=== PATIENT | male | born 1980 | race Caucasian/White ===

== ENCOUNTER 2019-02-28 16:47 | Emergency (ER) | payer OTHER ==
[2019-02-28 16:55] VITALS: BMI 27.3
[2019-02-28 16:57] VITALS: O2SAT 97
--- NOTE | 2019-02-28 17:08 | C.PDOC ---
Time Seen by Provider: 02/28/19 17:08 Chief Complaint (Nursing): Chest Pain Past Medical History Vital Signs: Last Vital Signs Temp 98.4 F 02/28/19 16:55 Pulse 64 02/28/19 16:55 Resp 18 02/28/19 16:55 BP 108/67 02/28/19 16:55 Pulse Ox 97 02/28/19 16:55 Primary Care Provider: FAMILY PROVIDER,NO - Social History Hx Alcohol Use: No Hx Substance Use: No - Immunization History Hx Tetanus Toxoid Vaccination: No Hx Influenza Vaccination: No Hx Pneumococcal Vaccination: No ED Course And Treatment O2 Sat by Pulse Oximetry: 97 Disposition - Disposition
[2019-02-28] MEDS ORDERED: Sodium Chloride 0.9% 1,000 ML IV ONE (17:44)
--- NOTE | 2019-02-28 17:57 | C.PDOC ---
History Of Present Illness PGY-[address] Bryant Dasilva [employer]: [facility] #[id number] Patient is 38 year old male with pmhx of Gastritis, H.pylori infection, presents to ED for epigastric pain and 3/4 episodes of non bloody vomiting since yesterday. Patient states pain is described as burning, associated with eating heavy meal. vomiting is associated with eating as well. admits to chest discomfort on left side and back pain. admits to diarrhea, denies fevers, chills, shortness of breath, constipation, blood in the stools, urinary symptoms. Pt sees Dr Trejo for GI issues, takes zantac for gastritis. <Bubba Gutierrez - Last Filed: 02/28/19 19:56> History Per: Patient History/Exam Limitations: language barrier Onset/Duration Of Symptoms: Days Current Symptoms Are (Timing): Still Present Context: Food Radiation Of Pain To:: Back, Chest Quality Of Discomfort: Burning Associated Symptoms: Nausea, Vomiting, Diarrhea, Loss Of Appetite, Back Pain, Chest Pain. denies: Fever, Chills, Constipation, Urinary Symptoms Exacerbating Factors: Food <Bubba Gutierrez - Last Filed: 02/28/19 19:56> <Bryant Dasilva - Last Filed: 03/01/19 21:42> Time Seen by Provider: 02/28/19 17:08 Chief Complaint (Nursing): Chest Pain Past Medical History Vital Signs: Last Vital Signs Temp 98.4 F 02/28/19 16:55 Pulse 64 02/28/19 16:55 Resp 18 02/28/19 16:55 BP 108/67 02/28/19 16:55 Pulse Ox 97 02/28/19 16:55 Primary Care Provider: FAMILY PROVIDER,NO - Medical History PMH: Gastritis Surgical History: No Surg Hx Family History: States: No Known Family Hx - Social History Hx Tobacco Use: Yes (7-9 cigarettes/day) Hx Alcohol Use: No Hx Substance Use: No - Immunization History Hx Tetanus Toxoid Vaccination: No Hx Influenza Vaccination: No Hx Pneumococcal Vaccination: No <Bubba Gutierrez - Last Filed: 02/28/19 19:56> Vital Signs: Last Vital Signs Temp 98.4 F 02/28/19 16:55 Pulse 60 02/28/19 17:31 Resp 16 02/28/19 17:31 BP 109/69 02/28/19 17:31 Pulse Ox 97 02/28/19 18:15 <Bryant Dasilva - Last Filed: 03/01/19 21:42> Review Of Systems Constitutional: Negative for: Fever, Chills, Weakness Cardiovascular: Positive for: Chest Pain. Negative for: Palpitations Respiratory: Negative for: Shortness of Breath Gastrointestinal: Positive for: Nausea, Vomiting, Abdominal Pain, Diarrhea. Negative for: Constipation, Melena, Hematochezia, Hematemesis Genitourinary: Negative for: Dysuria, Frequency Musculoskeletal: Positive for: Back Pain Neurological: Negative for: Weakness Psych: Negative for: Anxiety, Depression <Bubba Gutierrez - Last Filed: 02/28/19 19:56> Physical Exam - Physical Exam Appears: Non-toxic, No Acute Distress Skin: Normal Color Head: Atraumatic, Normacephalic Eye(s): bilateral: Normal Inspection, EOMI Neck: Normal ROM Chest: Tenderness (left chest area mild tenderness to palpation ) Cardiovascular: Rhythm Regular Respiratory: Normal Breath Sounds Gastrointestinal/Abdominal: Normal Exam, Bowel Sounds, Soft, Tenderness (epigastric and left upper quadrant tenderness, mild diffuse tenderness ), No Distention Back: No CVA Tenderness, No Vertebral Tenderness Extremity: Normal ROM, No Tenderness, No Swelling Neurological/Psych: Oriented x3, Normal Speech, Normal Cognition, Normal Motor, Normal Sensation <Bubba Gutierrez - Last Filed: 02/28/19 19:56> - Physical Exam Eye(s): bilateral: PERRL Ear(s): Bilateral: Normal Nose: Normal, No Flaring, No Discharge Oral Mucosa: Moist Throat: Normal, No Erythema, No Exudate, No Drooling Neck: Normal, Supple, Other (no meningeal signs) Chest: Tenderness Cardiovascular: No Friction Rub, No Murmur, No JVD Respiratory: No Stridor, No Wheezing Back: Normal Inspection, No Muscle Spasm, No Paraspinal Tenderness Extremity: Bilateral: Atraumatic Gait: Steady <Bryant Dasilva - Last Filed: 03/01/19 21:42> ED Course And Treatment - Laboratory Results Result Diagrams: 02/28/19 18:24 02/28/19 18:24 ECG: Viewed By Me Interpretation Of EC, normal sinus, no STEMI Rate From EC O2 Sat by Pulse Oximetry: 97 <Bubba Gutierrez - Last Filed: 02/28/19 19:56> - Laboratory Results Result Diagrams: 02/28/19 18:24 02/28/19 18:24 Lab Results: Troponin I < 0.0120 ng/mL (0.00-0.120) 02/28/19 18:24 Total Bilirubin 0.5 mg/dL (0.2-1.3) 02/28/19 18:24 AST 17 U/L (17-59) 02/28/19 18:24 ALT 16 U/L (21-72) L 02/28/19 18:24 Alkaline Phosphatase 66 U/L (38-126) 02/28/19 18:24 Total Protein 7.5 g/dL (6.3-8.3) 02/28/19 18:24 Albumin 4.3 g/dL (3.5-5.0) 02/28/19 18:24 Globulin 3.1 gm/dL (2.2-3.9) 02/28/19 18:24 Albumin/Globulin Ratio 1.4 (1.0-2.1) 02/28/19 18:24 Lipase 96 U/L (23-300) 02/28/19 18:24 <Bryant Dasilva - Last Filed: 03/01/19 21:42> Medical Decision Making Medical Decision Makin38 year old male with pmhx of gastritis, H.pylori infection, presenting with epigastric pain and 3-4 episodes of vomiting, non bloody and chest tenderness, most likely associated with gastritis, rule out cardiac etiology - EKG - Basic labs - CMP, CBC - trops - lipase - Chest Xray - Bentyl 10mg PO x 1 - Pepcid IVP x 1 - reglan IVP x1 - NS 1L <Bubba Gutierrez - Last Filed: 02/28/19 19:56> Medical Decision Makin No tearing back pain. No cauda equina signs. No midline back pain or CVAT pt tolerated po without vomiting cxr unremarkable labs unremarkable, abd non-ttp upon re-eval, denies any chest pain, to follow up w/ GI and cards <Bryant Dasilva - Last Filed: 03/01/19 21:42> Disposition <Bubba Gutierrez - Last Filed: 02/28/19 19:56> - Disposition Disposition Time: 19:33 <Bryant Dasilva - Last Filed: 03/01/19 21:42> - Disposition Referrals: Shawn Rudolph MD [Staff Provider] - Pepe Andujar MD [Staff Provider] - [facility] [Outside] [facility] [Outside] [facility] [Outside] Disposition: HOME/ ROUTINE Condition: GOOD Additional Instructions: [address], thank you for letting us take care of you today. Your provider was Bryant Dasilva and you were treated for CHEST DISCOMFORT/THROAT PAIN. The emergency medical care you received today was directed at your acute symptoms. If you were prescribed any medication, please fill it and take as directed. It may take several days for your symptoms to resolve. Return to the Emergency Department if your symptoms worsen, do not improve, or if you have any other problems. Please contact your doctor or call one of the physicians/clinics you have been referred to that are listed on the Patient Visit Information form that is incl uded in your discharge packet. Bring any paperwork you were given at discharge with you along with any medications you are taking to your follow up visit. Our treatment cannot replace ongoing medical care by a primary care provider outside of the emergency department. Thank you for allowing the [facility] team to be part of your care today. If you had an X-Ray or CT scan: A Radiologist will review the ED reading if any change in treatment is needed we will contact you. If you had a blood, urine, or wound culture: It will take several days for the results, if any change in treatment is needed we will contact you. If you had an STI test: It will take 48 hours for the results. Please call after 1 week if you have not heard back. Instructions: Chest Pain (DC), Gastritis (DC) Forms: [employer] ([place]e) - Clinical Impression Clinical Impression: Gastritis, Chest pain - PA / LEATHER COVERER / Resident Statement MD/DO has examined the patient and agrees with the treatment plan. (38 yr old male p/w epigastric abdominal pain radiating up through his chest. Chest pain is burning and reproducible to palaption. No fall or trauma. Low risk heart score. Wells negative, PERC out. Likely gastritis. Labs and imaging unremarkable and pt noted pain resolved, given return indications and f/u. Pt agreeable to plan) <Bryant Dasilva - Last Filed: 03/01/19 21:42>
[2019-02-28] MEDS ORDERED: Sodium Chloride 0.9% 1,000 ML ONE (18:00)
[2019-02-28 18:14] VITALS: RESP 16
[2019-02-28 18:29] LABS: BASO % 0.3 % (0.0-2.0); EOS # 0.1 K/uL (0.0-0.7); EOS % 1.3 % (0.0-4.0); HEMOGLOBIN 15.1 g/dL (12.0-18.0); LYMPH # 2.9 K/uL (1.0-4.3); MEAN CELL VOLUME 86.4 fL (80.0-94.0); MEAN CORPUSCULAR HEMOGLOBIN 29.5 pg (27.0-31.0); MEAN CORPUSCULAR HGB CONC 34.1 g/dL (33.0-37.0); MEAN PLATELET VOLUME 9.1 fL (7.2-11.7); MONO # 0.5 K/uL (0.0-0.8); MONO % 5.9 % (0.0-10.0); NEUT # 4.6 K/uL (1.8-7.0); NEUT % 56.5 % (50.0-75.0); NRBC % 0.1 % (0.0-2.0); RBC 5.12 Mil/uL (4.40-5.90); WHITE BLOOD COUNT 8.1 K/uL (4.8-10.8)
--- NOTE | 2019-02-28 18:32 | RAD ---
Date of service: 02/28/2019 HISTORY: Chest pain COMPARISON: No prior. TECHNIQUE: Chest PA and lateral FINDINGS: LINES AND TUBES: None. LUNG AND PLEURA: The lungs are well inflated and clear. No pleural effusion or pneumothorax. HEART AND MEDIASTINUM: The heart is not enlarged. No aortic atherosclerotic calcifications present. The hilar and mediastinal contours are within normal limits. SKELETAL STRUCTURES: The bony structures are within normal limits for the patient's age. VISUALIZED UPPER ABDOMEN: Normal. OTHER FINDINGS: None. IMPRESSION: No active pulmonary disease.
[2019-02-28 18:41] LABS: ALB/GLOB RATIO 1.4 (1.0-2.1); ALBUMIN 4.3 g/dL (3.5-5.0); ALT/SGPT 16 U/L (21-72); AST/SGOT 17 U/L (17-59); BLOOD UREA NITROGEN 14 mg/dL (9-20); CALCIUM 9.4 mg/dl (8.6-10.4); GFR NON-AFRICAN AMERICAN > 60; LIPASE 96 U/L (23-300)
[2019-02-28 20:08] VITALS: BP 105/62; PULSE 73; TEMP 98.8
== END 2019-02-28 19:40 | disposition home or self-care (01) ==
LOC: C.ER 16:47
DX: K29.70 Gastritis, unspecified, without bleeding (principal); R07.9 Chest pain, unspecified; F17.210 Nicotine dependence, cigarettes, uncomplicated
CPT/HCPCS: 71046; 80053; 83690; 84484; 85025; 96361; 96374; 96375; 99285; J2765; J7030